=== PATIENT | male | born 1960 | race Caucasian/White ===

== ENCOUNTER 2021-01-10 18:54 | Emergency (ER) | payer OTHER ==
[~2021-01-10] VITALS: Ht 177.8 cm; Wt 109.0 kg
[2021-01-10] MEDS ORDERED: TORADOL PO (20:27)
[2021-01-10 20:40] VITALS: BP 140/90
== END 2021-01-10 20:40 | disposition home or self-care (01) | DRG 605 ==
LOC: ED 18:54
DX: S20.211A Contusion of right front wall of thorax, initial encounter (principal); I10 Essential (primary) hypertension; V19.3XXA Pedal cyclist (driver) (passenger) injured in unspecified nontraffic accident, initial encounter